=== PATIENT | female | born 1995 ===

== ENCOUNTER 2018-07-28 15:02 | Emergency (ER) | payer OTHER ==
[2018-07-28 15:13] VITALS: O2SAT 99
--- NOTE | 2018-07-28 15:42 | ED PDOC ---
Lower Extremity Pain/Injury Time Seen by Provider: 07/28/18 15:17 Chief Complaint (Nursing): Lower Extremity Problem/Injury Chief Complaint (Provider): Right Ankle Pain History Per: Patient History/Exam Limitations: no limitations Onset/Duration Of Symptoms: Days (x2) Current Symptoms Are (Timing): Still Present Additional Complaint(s): 23 year old female presents to the ED for evaluation of progressively worsening right ankle pain s/p a slip and fall on to it two days ago. Denies other injury, numbness, and tingling. PMD: none provided Past Medical History Reviewed: Historical Data, Nursing Documentation, Vital Signs Vital Signs: Last Vital Signs Temp 97.9 F 07/28/18 15:10 Pulse 84 07/28/18 15:10 Resp 16 07/28/18 15:10 BP 136/88 07/28/18 15:10 Pulse Ox 99 07/28/18 15:10 - Medical History PMH: No Chronic Diseases - Surgical History Surgical History: No Surg Hx - Family History Family History: States: Unknown Family Hx - Allergies Allergies/Adverse Reactions: Allergies Allergy/AdvReac Type Severity Reaction Status Date / Time No Known Allergies Allergy Verified 07/28/18 15:10 Review of Systems ROS Statement: Except As Marked, All Systems Reviewed And Found Negative Musculoskeletal: Positive for: Other (right ankle pain) Neurological: Negative for: Numbness, Other (tingling) Physical Exam - Reviewed Nursing Documentation Reviewed: Yes Vital Signs Reviewed: Yes - Physical Exam Appears: Positive for: No Acute Distress Pulses-Dorsalis Pedis (L): 2+ Pulses-Dorsalis Pedis (R): 2+ Extremity: Positive for: Tenderness (mild to right lateral malleolus; right foot non-tender), Swelling (mild to right lateral malleolus). Negative for: Deformity - ECG O2 Sat by Pulse Oximetry: 99 (RA) Pulse Ox Interpretation: Normal - Radiology X-Ray: Read By Radiologist (R ankle x-ray) X-Ray Interpretation: No Acute Disease Medical Decision Making Medical Decision Making: Time: 1530 Initial Impression: right ankle pain s/p slip and fall Initial Plan: --Right ankle XR 1639 XR FINDINGS: BONES: No acute fracture. Accessory ossicle distal to the fibular tip. Bone island in the distal tibial metaphysis. JOINTS: Normal. No osteoarthritis. Ankle mortise maintained. Talar dome intact SOFT TISSUES: Lateral malleolar soft tissue swelling. Small ankle joint effusion. OTHER FINDINGS: None. IMPRESSION: Lateral malleolar soft tissue swelling and small ankle joint effusion without demonstrated fracture or dislocation. Ankle immobilized in aircast splint applied by neurophysiological technician. Crutches and crutch walking instructions provided by neurophysiological technician. Scribe Attestation: Documented by Yessi Moran, acting as a scribe for Wesley Cobian PA-C. Provider Scribe Attestation: All medical record entries made by the Scribe were at my direction and personally dictated by me. I have reviewed the chart and agree that the record accurately reflects my personal performance of the history, physical exam, medical decision making, and the department course for this patient. I have also personally directed, reviewed, and agree with the discharge instructions and disposition. Disposition - Clinical Impression Clinical Impression: Ankle injury - Patient ED Disposition Is Patient to be Admitted: No - Disposition Referrals: Podiatry Clinic [Outside] Diane Durham DPM [Staff Provider] - Disposition: Routine/Home Disposition Time: 16:45 Condition: STABLE Additional Instructions: FOLLOW UP WITH [facility] FOR FURTHER EVALUATION RETURN TO ED IMMEDIATELY IF SYMPTOMS WORSEN HUSSEIN SANTORO, thank you for letting us take care of you today. Your provider was Ketan Olivarez MD and you were treated for W/C: RIGHT ANKLE INJURY. The emergency medical care you received today was directed at your acute symptoms. If you were prescribed any medication, please fill it and take as directed. It may take several days for your symptoms to resolve. Return to the Emergency Department if your symptoms worsen, do not improve, or if you have any other problems. Please contact your doctor or call one of the physicians/clinics you have been referred to that are listed on the Patient Visit Information form that is included in your discharge packet. Bring any paperwork you were given at discharge with you along with any medications you are taking to your follow up visit. Our treatment cannot replace ongoing medical care by a primary care provider outside of the emergency department. Thank you for allowing the [facility] team to be part of your care today. If you had an X-Ray or CT scan: A Radiologist will review the ED reading if any change in treatment is needed we will contact you. If you had a blood, urine, or wound culture: It will take several days for the results, if any change in treatment is needed we will contact you. If you had an STI test: It will take 48 hours for the results. Please call after 1 week if you have not heard back. Instructions: Ankle Sprain (DC), How to Use Crutches Forms: [employer] ([place]), [facility] ED School/Work Excuse
--- NOTE | 2018-07-28 16:43 | RAD ---
Date of service: 07/28/2018 PROCEDURE: Right Ankle Radiographs. HISTORY: trauma COMPARISON: None available. FINDINGS: BONES: No acute fracture. Accessory ossicle distal to the fibular tip. Bone island in the distal tibial metaphysis. JOINTS: Normal. No osteoarthritis. Ankle mortise maintained. Talar dome intact SOFT TISSUES: Lateral malleolar soft tissue swelling. Small ankle joint effusion. OTHER FINDINGS: None. IMPRESSION: Lateral malleolar soft tissue swelling and small ankle joint effusion without demonstrated fracture or dislocation.
[2018-07-28 18:06] VITALS: BP 122/69; PULSE 89; RESP 18; TEMP 98
== END 2018-07-28 17:25 | disposition home or self-care (01) ==
LOC: H.ER 15:02
DX: S99.911A Unspecified injury of right ankle, initial encounter (principal); W01.0XXA Fall on same level from slipping, tripping and stumbling without subsequent striking against object, initial encounter